=== PATIENT | male | born 1950 | race Hispanic/Latino ===

== ENCOUNTER 2016-06-06 10:11 | Outpatient (CLI) | payer MEDICARE ==
--- NOTE | 2016-06-06 12:11 | Cat Scan Report ---
CT of the abdomen and pelvis without contrast. Findings: Comparison is made to previous study on September 08, 2015. The liver and spleen are normal. Atrophic changes in the pancreas are present. There is a moderate sized hiatal hernia. There are 3 small stones in the right kidney all measuring 3 mm in diameter. There are 4 stones in the left kidney, the largest of which measures 4 mm in diameter. There is no hydronephrosis. No renal masses are seen. The gallbladder is unremarkable. There no pelvic masses or abnormal fluid collections. No mesenteric inflammation is seen. Impression: 1. Bilateral nephrolithiasis without hydronephrosis. 2. Pancreatic atrophy which is stable.
== END 2016-06-06 10:12 | disposition home or self-care (01) ==
LOC: CT 10:11
PROVIDERS: ATTEND Urology
DX: N20.0 Calculus of kidney (principal); K44.9 Diaphragmatic hernia without obstruction or gangrene; K86.89 Other specified diseases of pancreas
CPT/HCPCS: 74176

== ENCOUNTER 2016-10-25 09:10 | Outpatient (CLI) | payer MEDICARE | END 2016-10-25 09:11 | disposition home or self-care (01) | LOC: LAB 09:10 | PROVIDERS: ATTEND Internal Medicine | DX: E10.9 Type 1 diabetes mellitus without complications (principal); K21.9 Gastro-esophageal reflux disease without esophagitis; E78.2 Mixed hyperlipidemia; I11.0 Hypertensive heart disease with heart failure; I50.9 Heart failure, unspecified; E78.00 Pure hypercholesterolemia, unspecified; E03.9 Hypothyroidism, unspecified; F41.9 Anxiety disorder, unspecified; F32.9 Major depressive disorder, single episode, unspecified | CPT/HCPCS: 36415 ==

== ENCOUNTER 2018-07-18 18:58 | Observation (INO) | payer MEDICARE ==
[2018-07-18] MEDS ORDERED: ASPIRIN PO ONE (19:46)
[2018-07-18] MEDS ORDERED: XANAX PO ONE (19:59)
[2018-07-18 20:31] LABS: Hematocrit 36.6 % (35.5-45.6); Hemoglobin 12.1 gm/dl (11.8-15.2); Mean Corpuscular HGB Conc 33 % (32-34); Mean Corpuscular Volume 97 fl (84-94); Platelet Count 284 K/mm3 (140-440); Red Blood Count 3.76 M/mm3 (3.65-5.03); Red Cell Distribution Width 13.9 % (13.2-15.2)
--- NOTE | 2018-07-18 20:32 | XRay Report ---
PROCEDURE: XR CHEST 1V AP TECHNIQUE: Chest radiograph single view. HISTORY: chest pain COMPARISONS: None . FINDINGS: Heart: Mild degree cardiomegaly is noted. Mediastinum/Vessels: Normal. Lungs/Pleural space: Left lower lung is obscured by the cardiac shadow. There are no obvious infiltr ates or mass lesions. Pleural spaces are clear. There is mild degree of elevation of right hemidiaphr agm.. Bony thorax: No acute osseous abnormality. Life support devices: None. IMPRESSION: Mild degree cardiomegaly No obvious acute pulmonary process A two-view chest study is recommended whenever the patient's condition permits.. This document is electronically signed by Brian Aguilar MD., July 18 2018 08:30:33 PM ET
[2018-07-18 20:39] LABS: INR 0.97 (0.87-1.13)
[2018-07-18 20:40] LABS: Partial Thromboplastin Time 26.6 Sec. (24.2-36.6)
[2018-07-18 20:45] LABS: BUN/Creatinine Ratio 12; Blood Urea Nitrogen 14 mg/dL (9-20); Hemolysis Index 1
--- NOTE | 2018-07-18 21:00 | Emergency Department Report ---
ED Chest Pain HPI - General Chief Complaint: Chest Pain Stated Complaint: CHEST PAIN Time Seen by Provider: 07/18/18 19:42 Source: patient Mode of arrival: Ambulatory Limitations: No Limitations - History of Present Illness Initial Comments: 67-year-old male with history of CAD with stents presents to ED with chest pain. Patient's father presented as a cardiac arrest in this ER. After informing the patient that his father , patient immediately began having left-sided chest pain and began hyperventilating. Patient eventually checked into the ER for evaluation. Prior to doing so patient did take one sublingual nitroglycerin that seemed to help. Patient also reports history of anxiety, says he is unable to tell if it is his anxiety or if he is actually having cardiac chest pain. Cardiology: [facility] Complaint: chest pain -: hour(s) (1) Onset: during rest Pain Location: left chest Pain Radiation: none Severity: severe Severity scale (0 -10): 0 Quality: tightness Consistency: constant Improves With: nitroglycerin Worsens With: nothing re: dyspnea. denies: nausea, vomting, diaphoresis - Related Data Home Medications Medication Instructions Recorded Confirmed Last Taken ALPRAZolam [Xanax TAB] 0.5 mg PO TID PRN 08/18/14 07/18/18 08/17/14 Levothyroxine [Synthroid] 137 mcg PO QAM 08/18/14 07/18/18 08/18/14 Lisinopril [Zestril TAB] 5 mg PO QDAY 08/18/14 07/18/18 08/18/14 Aspirin [Aspirin BABY CHEW TAB] 81 mg PO QDAY 08/31/15 07/18/18 Unknown Atorvastatin [Lipitor] 80 mg PO QDAY 08/31/15 07/18/18 Unknown Clopidogrel [Plavix] 75 mg PO QDAY 08/31/15 07/18/18 Unknown Lansoprazole [Prevacid] 30 mg PO QDAY 08/31/15 07/18/18 Unknown Nitroglycerin [Nitrostat] 0.4 mg SL Q5M PRN 08/31/15 07/18/18 Unknown Sertraline [Zoloft] 50 mg PO QDAY 08/31/15 07/18/18 Unknown Previous Rx's Medication Instructions Recorded Last Taken Type ISOSORBIDE MONOnitrate [Imdur ER] 60 mg PO QDAY #30 tab.er.24h 09/01/15 Unknown Rx Allergies Allergy/AdvReac Type Severity Reaction Status Date / Time diazepam [From Valium] Allergy Unknown Unknown Verified 08/18/14 22:25 ampicillin AdvReac Unknown Unknown Verified 08/18/14 16:53 Heart Score - HEART Score History: Moderately suspicious EKG: Normal Age: > 65 Risk factors: > 3 risk factors or hx of atherosclerotic disease Troponin: < normal limit HEART Score: 5 ED Review of Systems ROS: Stated complaint: CHEST PAIN Other details as noted in HPI Comment: All other systems reviewed and negative Constitutional: denies: fever Respiratory: shortness of breath. denies: cough Cardiovascular: chest pain Gastrointestinal: denies: nausea, vomiting Psychiatric: anxiety ED Past Medical Hx - Past Medical History Previous Medical History?: Yes Hx Hypertension: Yes Hx CVA: Yes Hx Heart Attack/AMI: No Hx Congestive Heart Failure: No Hx Diabetes: Yes Hx Deep Vein Thrombosis: No Hx Liver Disease: No Hx Renal Disease: No Hx of Cancer: No Hx Sickle Cell Disease: No Hx Arthritis: No Hx Seizures: No Hx Kidney Stones: Yes Hx Asthma: No Hx Dementia: No Hx HIV: No - Surgical History Hx Coronary Stent: Yes (Stents x 5) Hx Open Heart Surgery: Yes (Quadruple bypass in 2001) Hx Pacemaker: No Hx Internal Defibrillator: No Hx Cholecystectomy: No Hx Appendectomy: Yes Hx Breast Surgery: No Additional Surgical History: SPLENECTOMY, REMOVAL OF PANCREAS - Social History Smoking Status: Never Smoker Substance Use Type: None - Medications Home Medications: Home Medications Medication Instructions Recorded Confirmed Last Taken Type ALPRAZolam [Xanax TAB] 0.5 mg PO TID PRN 08/18/14 07/18/18 08/17/14 History Levothyroxine [Synthroid] 137 mcg PO QAM 08/18/14 07/18/18 08/18/14 History Lisinopril [Zestril TAB] 5 mg PO QDAY 08/18/14 07/18/18 08/18/14 History Aspirin [Aspirin BABY CHEW TAB] 81 mg PO QDAY 08/31/15 07/18/18 Unknown History Atorvastatin [Lipitor] 80 mg PO QDAY 08/31/15 07/18/18 Unknown History Clopidogrel [Plavix] 75 mg PO QDAY 08/31/15 07/18/18 Unknown History Lansoprazole [Prevacid] 30 mg PO QDAY 08/31/15 07/18/18 Unknown History Nitroglycerin [Nitrostat] 0.4 mg SL Q5M PRN 08/31/15 07/18/18 Unknown History Sertraline [Zoloft] 50 mg PO QDAY 08/31/15 07/18/18 Unknown History ISOSORBIDE MONOnitrate [Imdur ER] 60 mg PO QDAY #30 tab.er.24h 09/01/15 07/18/18 Unknown Rx ED Physical Exam - General Limitations: No Limitations General appearance: alert, anxious - Head Head exam: Present: atraumatic, normocephalic - Eye Eye exam: Present: normal appearance - ENT ENT exam: Present: mucous membranes moist - Neck Neck exam: Present: normal inspection - Respiratory Respiratory exam: Present: normal lung sounds bilaterally. Absent: respiratory distress - Cardiovascular Cardiovascular Exam: Present: regular rate, normal rhythm - GI/Abdominal GI/Abdominal exam: Present: soft. Absent: distended, tenderness - Extremities Exam Extremities exam: Present: normal inspection - Neurological Exam Neurological exam: Present: alert, oriented X3, CN II-XII intact. Absent: motor sensory deficit - Psychiatric Psychiatric exam: Present: anxious, other (sad, tearful) - Skin Skin exam: Present: warm, dry, intact, normal color. Absent: rash ED Course Vital Signs 07/18/18 07/18/18 07/18/18 20:01 20:14 20:20 Temperature 97.7 F 97.7 F Pulse Rate 137 H 137 H Respiratory 10 L 19 19 Rate Blood Pressure 142/72 150/81 Blood Pressure 150/81 [Right] O2 Sat by Pulse 97 100 100 Oximetry 07/18/18 07/18/18 21:00 22:01 Temperature Pulse Rate 54 L 48 L Respiratory 11 L 11 L Rate Blood Pressure 147/75 125/68 Blood Pressure [Right] O2 Sat by Pulse 93 93 Oximetry RAUL score - Raul Score Age > 65: (1) Yes Aspirin use within the Past 7 Days: (1) Yes 3 or more CAD Risk Factors: (1) Yes 2 or more Angina events in past 24 hrs: (1) Yes Known CAD with more than 50% Stenosis: (1) Yes Elevated Cardiac Markers: (0) No ST Deviation Greater than 0.5mm: (0) No RAUL Score: 5 ED Medical Decision Making - Lab Data Result diagrams: 07/18/18 20:05 07/18/18 20:05 - EKG Data -: EKG Interpreted by Me EKG shows normal: sinus rhythm, axis, intervals, QRS complexes, ST-T waves - EKG Data Interpretation: no acute changes - Radiology Data Radiology results: report reviewed, image reviewed - Medical Decision Making 67 yo M w/ hx of CAD w/ stents, anxiety presentst to ED with complaint of chest pain after being notified of his father's . Pt initially very tremulous and anxious. Pt took one of his own nitroglycerin tabs, reported improvement of pain. Pt was also given Xanax here in ED, which he takes at home. Symptoms did improve, pt much more comfortable at this time, reports resolution of chest pain. EKG shows no ST changes, troponin normal. Symptoms likely due to anxiety attack from news of his father passing. However, due to his cardiac history, will admit to hospitalist for further evaluation. - Differential Diagnosis ACS, anxiety Critical care attestation.: If time is entered above; I have spent that time in minutes in the direct care of this critically ill patient, excluding procedure time. ED Disposition Clinical Impression: Chest pain Disposition: [id number] OP ADMIT IP TO THIS HOSP Is pt being admited?: Yes Condition: Stable Time of Disposition: 21:02
[2018-07-18 21:33] LABS: Basophils % (Manual) 0 % (0.0-1.8); Total Cells Counted 100
[2018-07-18 21:34] LABS: Ovalocytes Few; Platelet Estimate Consistent w Auto; Poikilocytosis 1+
--- NOTE | 2018-07-18 22:19 | History and Physical Report ---
History of Present Illness Date of examination: 07/18/18 History of present illness: 67-year-old man with a history of hypertension, diabetes, coronary artery disease, CHF, hyperlipidemia, hypothyroidism, anxiety, CVA came to the emergency room to check on his father who suffered a cardiac arrest and . When the patient was given the news, and he developed chest pain in the epigastric area which she describes a sharp crampy pain, constant, and intensity 5/10, no radiation, relieved with nitroglycerin. Admits to shortness of breath, nausea, no diaphoresis or palpitation Review of systems Constitutional: no weight loss, chills, fever Ears, eyes, nose, mouth and throat: no nasal congestion, no nasal discharge, no sinus pressure, no vision change, no red eye. Neck: No neck pain or rigidity. Cardiovascular: no palpitations, +chest pain Respiratory: no cough, +shortness of breath Gastrointestinal: no hematochezia, abdominal pain Genitourinary : no frequency , no hematuria Musculoskeletal: no joint swelling or muscle ache Integumentary: no rash, no pruritis Neurological: no parathesias, no focal weakness Endocrine: no cold or heat intolerance, no polyuria or polydipsia Hematologic/Lymphatic: no easy bruising, no easy bleeding, no gland swelling Allergic/Immunologic: no urticaria, no angioedema. PAST MEDICAL HISTORY: Hypertension, diabetes, coronary artery disease, CHF, hyperlipidemia, hypothyroidism, anxiety, CVA PAST SURGICAL HISTORY: CABG, removal of tail of the Pancreas and spleen SOCIAL HISTORY: Denies alcohol, tobacco, drugs FAMILY HISTORY: Hypertension Medications and Allergies Allergies Allergy/AdvReac Type Severity Reaction Status Date / Time diazepam [From Valium] Allergy Unknown Unknown Verified 08/18/14 22:25 levofloxacin [From Levaquin] Allergy Hives Verified 07/19/18 02:49 ampicillin AdvReac Unknown Unknown Verified 08/18/14 16:53 Home Medications Medication Instructions Recorded Confirmed Last Taken Type ALPRAZolam [Xanax TAB] 0.5 mg PO TID PRN 08/18/14 07/18/18 08/17/14 History Levothyroxine [Synthroid] 137 mcg PO QAM 08/18/14 07/18/18 08/18/14 History Lisinopril [Zestril TAB] 5 mg PO QDAY 08/18/14 07/18/1808/18/15 History Aspirin [Aspirin BABY CHEW TAB] 81 mg PO QDAY 08/31/15 07/18/18 Unknown History Atorvastatin [Lipitor] 80 mg PO QDAY 08/31/15 07/18/18 Unknown History Clopidogrel [Plavix] 75 mg PO QDAY 08/31/15 07/18/18 Unknown History Lansoprazole [Prevacid] 30 mg PO QDAY 08/31/15 07/18/18 Unknown History Nitroglycerin [Nitrostat] 0.4 mg SL Q5M PRN 08/31/15 07/18/18 Unknown History Sertraline [Zoloft] 50 mg PO QDAY 08/31/15 07/18/18 Unknown History ISOSORBIDE MONOnitrate [Imdur ER] 60 mg PO QDAY #30 tab.er.24h 09/01/15 07/18/18 Unknown Rx Exam - Physical Exam Narrative exam: Gen. appearance: Patient lying in bed, no apparent distress HEENT: Normocephalic, atraumatic, pupils equally round and reactive to light, extraocular movement intact, and no sclericterus,. No JVD or thyromegaly or nodule,neck supple, no carotid bruit ,mucous membranes moist, no exudate or er ythema Heart: S1, S2, regular rate and rhythm Lungs: Clear bilaterally, breathing comfortable Abdomen: Positive bowel sounds, non-tender, nondistended, no organomegaly Extremity:no edema cyanosis, clubbing Skin: no rash, dry, warm Neuro: Oriented 3, cranial nerves II-12 intact, speech is fluent, motor and sensory intact - Constitutional Vitals: Temp Pulse Resp BP Pulse Ox 97.7 F 137 H 19 150/81 100 07/18/18 20:20 07/18/18 20:20 07/18/18 20:20 07/18/18 20:20 07/18/18 20:20 Results - Labs CBC & Chem 7: 07/19/18 05:07 07/19/18 05:07 Labs: Abnormal lab results 07/18/18 07/18/18 Range/Units 20:05 20:05 WBC 11.2 H (4.5-11.0) K/mm3 MCV 97 H (84-94) fl Lymphocytes % (Manual) 50.0 H (13.4-35.0) % Lymphocytes # (Manual) 5.6 H (1.2-5.4) K/mm3 Chloride 134.5 H (98-107) mmol/L Glucose 209 H (75-100) mg/dL - Imaging and Cardiology EKG: image reviewed Chest x-ray: report reviewed Assessment and Plan Assessment Chest pain Coronary artery disease CHF, stable Hyperlipidemia Hypothyroidism Hypertension Diabetes Anxiety History of CVA Plan Check cardiac enzymes, consult cardiology Check fingersticks, start insulin sliding scale Continue appropriate outpatient medications DVT prophylaxis
[2018-07-19] MEDS ORDERED: SODIUM CHLORIDE FLUSH SYRINGE 10 ML IV PRN (04:22)
[2018-07-19] MEDS ORDERED: MORPHINE IV PRN (04:22)
[2018-07-19] MEDS ORDERED: D50W (25GM) Syringe IV PRN (04:22)
[2018-07-19] MEDS ORDERED: ZOFRAN IV PRN (04:22)
[2018-07-19] MEDS ORDERED: TYLENOL PO PRN (04:22)
[2018-07-19 05:49] LABS: Hematocrit 35.9 % (35.5-45.6); Hemoglobin 12.3 gm/dl (11.8-15.2); Mean Corpuscular HGB Conc 34 % (32-34); Mean Corpuscular Volume 97 fl (84-94); Platelet Count 270 K/mm3 (140-440); Red Blood Count 3.71 M/mm3 (3.65-5.03); Red Cell Distribution Width 13.8 % (13.2-15.2)
[2018-07-19 06:11] LABS: BUN/Creatinine Ratio 12; Blood Urea Nitrogen 13 mg/dL (9-20); Calcium 9.1 mg/dL (8.4-10.2); Hemolysis Index 3
[2018-07-19] MEDS ORDERED: XANAX PO PRN (06:30)
[2018-07-19 07:32] LABS: Anisocytosis 1+; Basophils % (Manual) 0 % (0.0-1.8); Macrocytosis 1+; Total Cells Counted 100
[2018-07-19 07:33] LABS: Ovalocytes Few; Platelet Estimate Consistent w Auto; Poikilocytosis 1+
[2018-07-19] MEDS: HumaLOG SUB-Q SCH ×2 (08:19→13:54)
[2018-07-19] MEDS ORDERED: LOVENOX SUB-Q SCH (10:00)
[2018-07-19] MEDS ORDERED: IMDUR PO SCH (10:00)
[2018-07-19] MEDS ORDERED: ZOLOFT PO SCH (10:00)
[2018-07-19] MEDS ORDERED: NITROSTAT SL PRN (10:00)
[2018-07-19] MEDS ORDERED: PLAVIX PO SCH (10:00)
[2018-07-19] MEDS ORDERED: SODIUM CHLORIDE FLUSH SYRINGE 10 ML IV SCH (10:00)
[2018-07-19] MEDS ORDERED: NITRO-BID 2% TP SCH (10:00)
[2018-07-19] MEDS ORDERED: ZESTRIL PO SCH (10:00)
[2018-07-19] MEDS ORDERED: BABY ASPIRIN PO SCH (10:00)
--- NOTE | 2018-07-19 10:09 | Consultation ---
History of Present Illness Consult date: 07/19/18 Consult reason: chest pain History of present illness: This is a 67 year old male with a history of coronary artery disease with remote 4 vessel bypass grafting. August of 2015 he underwent a cardiac cath that reports: 1. Patent grafts X3. 2. Occluded circ graft 3. Patent circ stents. 4. LVEF 65%. Medical therapy recommended. Co-morbidities includes prior CVA with left sided residual, chronic hypertension and diabetes. Patient presented with chest pain. Patient reports chest pain developed after being told his father had . He associates chest pain with shortness of breath and anxiousness. Patient has not have any recent cardiac evaluation. Chest x-ray is negative. Cycled troponins are negative thus far and his ECG is sinus rhythm, no acute ischemic changes. He was admitted for further evaluation and is planned for a stress thallium test today. Medications and Allergies Allergies Allergy/AdvReac Type Severity Reaction Status Date / Time diazepam [From Valium] Allergy Unknown Unknown Verified 08/18/14 22:25 levofloxacin [From Levaquin] Allergy Hives Verified 07/19/18 02:49 ampicillin AdvReac Unknown Unknown Verified 08/18/14 16:53 Home Medications Medication Instructions Recorded Confirmed Last Taken Type ALPRAZolam [Xanax TAB] 0.5 mg PO TID PRN 08/18/14 07/18/18 08/17/14 History Levothyroxine [Synthroid] 137 mcg PO QAM 08/18/14 07/18/18 08/18/14 History Lisinopril [Zestril TAB] 5 mg PO QDAY 08/18/14 07/18/18 08/18/14 History Aspirin [Aspirin BABY CHEW TAB] 81 mg PO QDAY 08/31/15 07/18/18 Unknown History Atorvastatin [Lipitor] 80 mg PO QDAY 08/31/15 07/18/18 Unknown History Clopidogrel [Plavix] 75 mg PO QDAY 08/31/15 07/18/18 Unknown History Lansoprazole [Prevacid] 30 mg PO QDAY 08/31/15 07/18/18 Unknown History Nitroglycerin [Nitrostat] 0.4 mg SL Q5M PRN 08/31/15 07/18/18 Unknown History Sertraline [Zoloft] 50 mg PO QDAY 08/31/15 07/18/18 Unknown History ISOSORBIDE MONOnitrate [Imdur ER] 60 mg PO QDAY #30 tab.er.24h 09/01/15 07/18/18 Unknown Rx Active Meds: Active Medications Acetaminophen (Tylenol) 650 mg PO Q4H PRN PRN Reason: Pain MILD(1-3)/Fever >100.5/DOMINGUEZ Alprazolam (Xanax) 0.5 mg PO TID PRN PRN Reason: Anxiety Aspirin (Baby Aspirin) 81 mg PO QDAY [facility] Last Admin: 07/19/18 09:43 Dose: Not Given Documented by: Atorvastatin Calcium (Lipitor) 80 mg PO QDAY [facility] Clopidogrel Bisulfate (Plavix) 75 mg PO QDAY [facility] Dextrose (D50w (25gm) Syringe) 50 ml IV PRN PRN PRN Reason: Hypoglycemia Enoxaparin Sodium (Lovenox) 40 mg SUB-Q QDAY [facility] Last Admin: 07/19/18 09:42 Dose: Not Given Documented by: Insulin Human Lispro (Humalog) 0 unit SUB-Q [facility]; Protocol Last Admin: 07/19/18 08:19 Dose: Not Given Documented by: Isosorbide Mononitrate (Imdur) 60 mg PO QDAY [facility] Levothyroxine Sodium (Synthroid) 112 mcg PO QAM@0600 [facility] Levothyroxine Sodium (Synthroid) 25 mcg PO DAILY@0600 [facility] Lisinopril (Zestril) 5 mg PO QDAY [facility] Morphine Sulfate (Morphine) 2 mg IV Q4H PRN PRN Reason: Pain, Moderate (4-6) Nitroglycerin (Nitro-Bid 2%) 0.5 inch TP Q6H [facility]; Protocol Last Admin: 07/19/18 09:59 Dose: 0.5 inch Documented by: Nitroglycerin (Nitrostat) 0.4 mg SL .Q5MIN PRN PRN Reason: Chest Pain Ondansetron HCl (Zofran) 4 mg IV Q8H PRN PRN Reason: Nausea And Vomiting Sertraline HCl (Zoloft) 50 mg PO QDAY [facility] Sodium Chloride (Sodium Chloride Flush Syringe 10 Ml) 10 ml IV BID [facility] Sodium Chloride (Sodium Chloride Flush Syringe 10 Ml) 10 ml IV PRN PRN PRN Reason: LINE FLUSH Physical Examination Vital Signs Resp BP Pulse Ox 10 L 142/72 97 04/25/19 20:01 07/18/18 20:01 07/18/18 20:01 General appearance: no acute distress HEENT: Positive: PERRL Neck: Positive: trachea midline Cardiac: Positive: Bradycardia Lungs: Positive: Decreased Breath Sounds Neuro: Positive: Weakness Results 07/19/18 05:07 07/19/18 05:07 Coagulation 07/18/18 Range/Units 20:05 PT 13.5 (12.2-14.9) Sec. INR 0.97 (0.87-1.13) APTT 26.6 (24.2-36.6) Sec. CBC 07/18/18 07/19/18 Range/Units 20:05 05:07 WBC 11.2 H 10.6 (4.5-11.0) K/mm3 RBC 3.76 3.71 (3.65-5.03) M/mm3 Hgb 12.1 12.3 (11.8-15.2) gm/dl Hct 36.6 35.9 (35.5-45.6) % Plt Count 284 270 (140-440) K/mm3 Lymph # Pump Servicer Helper Pump Servicer Helper Comprehensive Metabolic Panel 07/18/18 07/19/18 Range/Units 20:05 05:07 Sodium 138 141 (137-145) mmol/L Potassium 4.8 4.0 (3.6-5.0) mmol/L Chloride 134.5 H 101.6 (98-107) mmol/L Carbon Dioxide 24 24 (22-30) mmol/L BUN 14 13 (9-20) mg/dL Creatinine 1.2 1.1 (0.8-1.5) mg/dL Glucose 209 H 245 H (75-100) mg/dL Calcium 10.0 9.1 (8.4-10.2) mg/dL Assessment and Plan Chest pain Hx of CAD with 4v CABG in 08/2015 cardiac cath reports: 1. Patent grafts X3. 2. Occluded circ graft 3. Patent circ stents. 4. LVEF 65%. Medical therapy recommended. Prior CVA with left sided residual Chronic hypertension Diabetes
[2018-07-19] MEDS ORDERED: LEXISCAN IV ONE ×2 (12:10)
--- NOTE | 2018-07-19 12:39 | Progress Note ---
Hospitalist Physical - Constitutional Vitals: Temp Pulse Resp BP Pulse Ox 97.7 F 58 L 16 154/77 97 07/19/18 08:00 07/19/18 09:59 07/19/18 08:00 07/19/18 09:59 07/19/18 08:00 General appearance: Present: no acute distress Results - Labs CBC & Chem 7: 07/19/18 05:07 07/19/18 05:07 Labs: Laboratory Last Values WBC 10.6 K/mm3 (4.5-11.0) 07/19/18 05:07 RBC 3.71 M/mm3 (3.65-5.03) 07/19/18 05:07 Hgb 12.3 gm/dl (11.8-15.2) 07/19/18 05:07 Hct 35.9 % (35.5-45.6) 07/19/18 05:07 MCV 97 fl (84-94) H 07/19/18 05:07 MCH 33 pg (28-32) H 07/19/18 05:07 MCHC 34 % (32-34) 07/19/18 05:07 RDW 13.8 % (13.2-15.2) 07/19/18 05:07 Plt Count 270 K/mm3 (140-440) 07/19/18 05:07 Lymph # Gardening Supervisor 07/19/18 05:07 Add Manual Diff Complete 07/19/18 05:07 Total Counted 100 07/19/18 05:07 Seg Neuts % (Manual) 52.0 % (40.0-70.0) 07/19/18 05:07 Band Neutrophils % 0 % 07/19/18 05:07 Lymphocytes % (Manual) 39.0 % (13.4-35.0) H 07/19/18 05:07 Reactive Lymphs % (Man) 0 % 07/19/18 05:07 Monocytes % (Manual) 8.0 % (0.0-7.3) H 07/19/18 05:07 Eosinophils % (Manual) 1.0 % (0.0-4.3) 07/19/18 05:07 Basophils % (Manual) 0 % (0.0-1.8) 07/19/18 05:07 Metamyelocytes % 0 % 07/19/18 05:07 Myelocytes % 0 % 07/19/18 05:07 Promyelocytes % 0 % 07/19/18 05:07 Blast Cells % 0 % 07/19/18 05:07 Nucleated RBC % Not Reportable 07/19/18 05:07 Seg Neutrophils # Man 5.5 K/mm3 (1.8-7.7) 07/19/18 05:07 Band Neutrophils # 0.0 K/mm3 07/19/18 05:07 Lymphocytes # (Manual) 4.1 K/mm3 (1.2-5.4) 07/19/18 05:07 Abs React Lymphs (Man) 0.0 K/mm3 07/19/18 05:07 Monocytes # (Manual) 0.8 K/mm3 (0.0-0.8) 07/19/18 05:07 Eosinophils # (Manual) 0.1 K/mm3 (0.0-0.4) 07/19/18 05:07 Basophils # (Manual) 0.0 K/mm3 (0.0-0.1) 07/19/18 05:07 Metamyelocytes # 0.0 K/mm3 07/19/18 05:07 Myelocytes # 0.0 K/mm3 07/19/18 05:07 Promyelocytes # 0.0 K/mm3 07/19/18 05:07 Blast Cells # 0.0 K/mm3 07/19/18 05:07 WBC Morphology Not Reportable 07/19/18 05:07 Hypersegmented Neuts Not Reportable 07/19/18 05:07 Hyposegmented Neuts Not Reportable 07/19/18 05:07 Hypogranular Neuts Not Reportable 07/19/18 05:07 Smudge Cells Not Reportable 07/19/18 05:07 Toxic Granulation Not Reportable 07/19/18 05:07 Toxic Vacuolation Not Reportable 07/19/18 05:07 Dohle Bodies Not Reportable 07/19/18 05:07 Pelger-Huet Anomaly Not Reportable 07/19/18 05:07 Lacey Rods Not Reportable 07/19/18 05:07 Platelet Estimate Consistent w auto 07/19/18 05:07 Clumped Platelets Not Reportable 07/19/18 05:07 Plt Clumps, EDTA Not Reportable 07/19/18 05:07 Large Platelets Not Reportable 07/19/18 05:07 Giant Platelets Not Reportable 07/19/18 05:07 Platelet Satelliting Not Reportable 07/19/18 05:07 Plt Morphology Comment Not Reportable 07/19/18 05:07 RBC Morphology Not Reportable 07/19/18 05:07 Dimorphic RBCs Not Reportable 07/19/18 05:07 Polychromasia Not Reportable 07/19/18 05:07 Hypochromasia Not Reportable 07/19/18 05:07 Poikilocytosis 1+ 07/19/18 05:07 Anisocytosis 1+ 07/19/18 05:07 Microcytosis Not Reportable 07/19/18 05:07 Macrocytosis 1+ 07/19/18 05:07 Spherocytes Not Reportable 07/19/18 05:07 Pappenheimer Bodies Not Reportable 07/19/18 05:07 Sickle Cells Not Reportable 07/19/18 05:07 Target Cells Not Reportable 07/19/18 05:07 Tear Drop Cells Not Reportable 07/19/18 05:07 Ovalocytes Few 07/19/18 05:07 Helmet Cells Not Reportable 07/19/18 05:07 [place] Bodies Not Reportable 07/19/18 05:07 [place] Rings Not Reportable 07/19/18 05:07 [place] Cells Not Reportable 07/19/18 05:07 Bite Cells Not Reportable 07/19/18 05:07 Crenated Cell Not Reportable 07/19/18 05:07 Elliptocytes Not Reportable 07/19/18 05:07 Acanthocytes (Spur) Few 07/19/18 05:07 Rouleaux Not Reportable 07/19/18 05:07 Hemoglobin C Crystals Not Reportable 07/19/18 05:07 Schistocytes Not Reportable 07/19/18 05:07 Malaria parasites Not Reportable 07/19/18 05:07 [place] Bodies Not Reportable 07/19/18 05:07 Hem Pathologist Commnt No 07/19/18 05:07 PT 13.5 Sec. (12.2-14.9) 07/18/18 20:05 INR 0.97 (0.87-1.13) 07/18/18 20:05 APTT 26.6 Sec. (24.2-36.6) 07/18/18 20:05 Sodium 141 mmol/L (137-145) 07/19/18 05:07 Potassium 4.0 mmol/L (3.6-5.0) 07/19/18 05:07 Chloride 101.6 mmol/L (98-107) 07/19/18 05:07 Carbon Dioxide 24 mmol/L (22-30) 07/19/18 05:07 Anion Gap 19 mmol/L 07/19/18 05:07 BUN 13 mg/dL (9-20) 07/19/18 05:07 Creatinine 1.1 mg/dL (0.8-1.5) 07/19/18 05:07 Estimated GFR > 60 ml/min 07/19/18 05:07 BUN/Creatinine Ratio 12 % 07/19/18 05:07 Glucose 245 mg/dL (75-100) H 07/19/18 05:07 POC Glucose 147 (70-105) H 07/18/18 23:51 Calcium 9.1 mg/dL (8.4-10.2) 07/19/18 05:07 Troponin T < 0.010 ng/mL (0.00-0.029) 07/19/18 02:17 Active Medications - Current Medications Current Medications: Generic Name Dose Route Start Last Admin Trade Name Freq PRN Reason Stop Dose Admin Acetaminophen 650 mg 07/19/18 04:22 Tylenol PO Q4H PRN Pain MILD(1-3)/Fever >100.5/DOMINGUEZ Alprazolam 0.5 mg 07/19/18 06:30 Xanax PO TID PRN Anxiety Aspirin 81 mg 07/19/18 10:00 07/19/18 09:43 Baby Aspirin PO Not Given QDAY [facility] Atorvastatin Calcium 80 mg 07/19/18 10:00 Lipitor PO QDAY [facility] Clopidogrel Bisulfate 75 mg 07/19/18 10:00 Plavix PO QDAY [facility] Dextrose 50 ml 07/19/18 04:22 D50w (25gm) Syringe IV PRN PRN Hypoglycemia Enoxaparin Sodium 40 mg 07/19/18 10:00 07/19/18 09:42 Lovenox SUB-Q Not Given QDAY [facility] Insulin Human Lispro 0 unit 07/19/18 07:30 07/19/18 08:19 Humalog SUB-Q [facility] Protocol Isosorbide Mononitrate 60 mg 07/19/18 10:00 Imdur PO QDAY [facility] Levothyroxine Sodium 112 mcg 07/20/18 06:00 Synthroid PO QAM@0600 [facility] Levothyroxine Sodium 25 mcg 07/20/18 06:00 Synthroid PO DAILY@0600 [facility] Lisinopril 5 mg 07/19/18 10:00 Zestril PO QDAY [facility] Morphine Sulfate 2 mg 07/19/18 04:22 Morphine IV Q4H PRN Pain, Moderate (4-6) Nitroglycerin 0.5 inch 07/19/18 10:00 07/19/18 09:59 Nitro-Bid 2% TP 0.5 inch Q6H [facility] Administration Protocol Nitroglycerin 0.4 mg 07/19/18 10:00 Nitrostat SL .Q5MIN PRN Chest Pain Ondansetron HCl 4 mg 07/19/18 04:22 Zofran IV Q8H PRN Nausea And Vomiting Sertraline HCl 50 mg 07/19/18 10:00 Zoloft PO QDAY [facility] Sodium Chloride 10 ml 07/19/18 10:00 Sodium Chloride Flush Syringe 10 Ml IV BID [facility] Sodium Chloride 10 ml 07/19/18 04:22 Sodium Chloride Flush Syringe 10 Ml IV PRN PRN LINE FLUSH
--- NOTE | 2018-07-19 13:50 | Discharge Summary ---
Providers - Providers Date of Admission: 07/18/18 22:18 Date of discharge: 07/19/18 Attending physician: CARINE LEI 07/19/18 04:22 Consult to Physician [CONS] Routine Comment: Consulting Provider: BLU BENTON Physician Instructions: Reason For Exam: cp Primary care physician: AKANKSHA LEONARD MD Hospitalization Condition: Fair Hospital course: Patient is 67 yo with a history of hypertension, diabetes, coronary artery disease, CHF, hyperlipidemia, hypothyroidism, anxiety, CVA. He came to the emergency room to check on his father who suffered a cardiac arrest and had . When the patient was given the news, he developed chest pain and shortness of breath. he was given aspirin and admitted to rule out acute garces ry syndrome. Cardiology was consulted and he was evaluated. Stress test was done was abnormal. Patient however wanted to go home to take of arrangement of his father that just . Cardiology recommended patient may be discharged home and follow as an outpatient. He was advised to return to the emergency department if any chest pain. Disposition: TO HOME OR SELFCARE - Discharge Diagnoses (1) Abnormal stress test Status: Acute (2) Stable angina Status: Acute (3) Chest pain Status: Acute (4) S/P CABG x 4 Status: Acute (5) Stented coronary artery Status: Acute (6) Hypothyroidism Status: Chronic Qualifiers: Hypothyroidism type: due to acquired atrophy of thyroid Qualified Code(s): E03.8 - Other specified hypothyroidism (7) Malignant hypertension Status: Chronic (8) Abnormal stress test Status: Acute Core Measure Documentation - Palliative Care Palliative Care/ Comfort Measures: Not Applicable - Core Measures Any of the following diagnoses?: none Exam - Constitutional Vitals: Temp Pulse Resp BP Pulse Ox 97.7 F 58 L 18 155/86 97 07/19/18 08:00 07/19/18 09:59 07/19/18 10:00 07/19/18 12:21 07/19/18 08:00 Plan Diet: low fat, low cholesterol, low salt, diabetic Additional Instructions: 1.Follow up with PCP in 3-5 days. 2.follow up with matzo forming machine operator at [facility] in 3-5 days to arrange outpatient cardiac cath. 3.Go to nearest ED if any more chest pain Follow up with: DAVID LORENZO MD [Staff Physician] - 3-5 Days
[2018-07-19 14:01] VITALS: BP 170/66
--- NOTE | 2018-07-19 21:23 | Treadmill Report ---
INDICATION: Chest pain. ORDERING PHYSICIAN: Marquita Navarrete MD FINDINGS: There is evidence of a large moderately reversible basal and mid anterolateral wall defect suggesting ischemia in the circumflex artery distribution. Gated wall imaging reveals normal left ventricular ejection fraction measured at 68% as well as normal wall motion and thickening. CONCLUSION: 1. Abnormal myocardial perfusion scan consistent with a large-sized moderately reversible basal and mid anterolateral wall defect suggesting ischemia in the circumflex artery distribution. 2. Normal left ventricular size and systolic function with an ejection fraction measured at 68%. 3. Clinical correlation is recommended. 4. This is an intermediate risk myocardial perfusion scan associated with 1-year cardiovascular event rate of 1-3%. JOB# [id number] ELANA/KEVEN
[2018-07-20] MEDS ORDERED: SYNTHROID PO SCH ×2 (06:00)
== END 2018-07-19 15:00 | disposition home or self-care (01) ==
LOC: ED 18:58 → 4A 22:18
PROVIDERS: ADMIT Internal Medicine; ATTEND Internal Medicine
DX: R07.89 Other chest pain (principal); I25.10 Atherosclerotic heart disease of native coronary artery without angina pectoris; I11.0 Hypertensive heart disease with heart failure; I50.9 Heart failure, unspecified; E11.9 Type 2 diabetes mellitus without complications; E78.5 Hyperlipidemia, unspecified; F41.9 Anxiety disorder, unspecified; Z86.73 Personal history of transient ischemic attack (TIA), and cerebral infarction without residual deficits
CPT/HCPCS: 36415; 71045; 78452; 80048; 82962; 84484; 85007; 85025; 85610; 85730; 93005; 93010; 93017; 96372; 99285; A9270; A9502; G0378; J2785; J1815